=== PATIENT | female | born 1955 | race Caucasian/White ===

== ENCOUNTER 2016-10-02 20:18 | Emergency (ER) | payer OTHER ==
[~2016-10-02 20:18] MED LIST: ACCUPRIL PO; ALBUTEROL0.83 MG/ML INH; ALBUTEROL17 GM INH; ALBUTEROL2.5 MG/0.5 INH; ALBUTEROL20 ml INH; ASPIRIN PO; ASPIRIN81 M2 PO; ATIVAN INJ; ATIVAN0.5 MG PO; AUGMENTIN PO; BACTRIM DS TABL1 TA1 PO; BACTRIM DS TABL1 TA2 PO; BACTRIM DS TABL1 TAB PO; BP PILL; BUPROPION HCL150 M3 PO; CHEWABLE ASPIRI81 MG PO; CHOLESTEROL MED PO; CIPRO PO; CLEOCIN PO; COMBIVENT U/D3 M2 INH; DARVOCET-N 1001 TAB PO; DIAZEPAM PO; DICLOFENAC PO; FLAGYL PO; FLEXERIL PO; FLEXERIL10 MG PO; GABAPENTIN400 M2 PO; GABAPENTIN600 MG PO; GLUCOTROL; GLUCOTROL PO; GUAIFENESIN200 M1 PO; HALDOL PO; HUMALOG100 U/M2 SUBQ; HUMIBID-LA600 MG PO; HYDROCODON-ACE1 EAC5 PO; IBUPROFEN PO; IPRAT-ALBUT 0.5-3 ML IH; JANUMET 50-1,1 UDTAB; JANUMET 50-1,1 UDTAB PO; JANUMET XR 1001 EACH PO; JANUVIA PO; KEFLEX500 MG PO; LANTUS INSULIN SQ; LANTUS100 U/M1 SQ; LANTUS100 U/M1 SUBQ; LANTUS100 U/ML INJ; LANTUS100 U/ML SUBQ; LEVAQUIN750 M1 PO; LEVAQUIN750 MG PO; LEVEMIR100 UNITS/ SUBQ; LIPITOR20 MG PO; LISINOPRIL PO; LISINOPRIL20 MG PO; LORAZEPAM1 MG PO; LORTAB 10-3251 EACH PO; LORTAB 5/500 TA1 TA1 PO; LORTAB 7.51 TAB DOB; MACROBID100 M1 PO; MEDROL DOSEPAK4 MG PO; MEDROL4 MG/DOSE- PO; METFORMIN; METFORMIN HCL1000 M1 PO; METFORMIN HCL500 M2 PO; METFORMIN HCL850 MG PO; METFORMIN PO; MOBIC PO; NAPROSYN375 MG PO; NAPROSYN500 MG PO; NAPROXEN PO; NEURONTIN PO; NEURONTIN100 MG PO; NEURONTIN300 MG PO; NEURONTIN600 MG PO; NEURONTIN800 MG PO; NORCO1 TAB 10/3 PO; NOVOLOG100 U/ML; NOVOLOG100 U/ML SUBQ; ORUDIS75 M1 PO; PAROXETINE HCL40 M1 PO; PAXIL; PAXIL PO; PAXIL40 MG PO; PEN-VEE K PO; PERCOCET PO; PRAVACHOL20 MG PO; PREDNISONE PO; PREDNISONE10 MG PO; PREDNISONE10 MG/DOSE PO; PREDNISONE5 M1 PO; PULMICORT0.5 MG/2 M IH; PYRIDIUM PO; PYRIDIUM100 MG PO; REQUIP0.5 MG PO; ROBAXIN500 MG PO; SYMBICORT INH; TALWIN NX50 MG TAB PO; TYLENOL #3 PO; ULTRAM PO; VIBRAMYCIN100 M1 PO; VICODIN 5/1 TAB 5/50 PO; VICODIN 5/500 T1 TAB PO; VICODIN PO; VOLTAREN75 MG PO; WELLBUTRIN PO; XANAX1 MG PO; ZITHROMAX PO; ZOFRAN ODT4 MG SL; ZOVIRAX400 MG PO
== END 2016-10-02 20:40 | disposition home or self-care (01) ==
LOC: SED 20:18
DX: L02.211 Cutaneous abscess of abdominal wall (principal); E11.9 Type 2 diabetes mellitus without complications; F17.210 Nicotine dependence, cigarettes, uncomplicated; Z88.0 Allergy status to penicillin; Z79.899 Other long term (current) drug therapy
CPT/HCPCS: 10060; 82947; 99283

== ENCOUNTER 2016-10-15 19:14 | Emergency (ER) | payer OTHER ==
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
== END 2016-10-15 20:51 | disposition home or self-care (01) ==
LOC: SED 19:14
DX: S50.12XA Contusion of left forearm, initial encounter (principal); E11.9 Type 2 diabetes mellitus without complications; J44.9 Chronic obstructive pulmonary disease, unspecified; F17.210 Nicotine dependence, cigarettes, uncomplicated; Z88.0 Allergy status to penicillin; Z79.899 Other long term (current) drug therapy; Z79.4 Long term (current) use of insulin; W18.30XA Fall on same level, unspecified, initial encounter; Y92.89 Other specified places as the place of occurrence of the external cause
CPT/HCPCS: 10060; 73090; 82947; 99283

== ENCOUNTER 2016-10-18 16:49 | Emergency (ER) | payer OTHER | END 2016-10-18 16:54 | disposition home or self-care (01) | LOC: SED 16:49 | DX: L03.114 Cellulitis of left upper limb (principal); J44.9 Chronic obstructive pulmonary disease, unspecified; F41.0 Panic disorder [episodic paroxysmal anxiety]; E11.9 Type 2 diabetes mellitus without complications; F17.210 Nicotine dependence, cigarettes, uncomplicated; Z79.4 Long term (current) use of insulin; Z79.899 Other long term (current) drug therapy; Z88.0 Allergy status to penicillin; Z88.8 Allergy status to other drugs, medicaments and biological substances | CPT/HCPCS: 99282 ==

== ENCOUNTER 2016-10-20 15:22 | Emergency (ER) | payer OTHER ==
[2016-10-20 15:49] LABS: BASOPHIL# 0.1 X10e3 (0-0.3); BASOPHIL% 0.7 % (0-2.5); EOSINOPHIL# 0.1 X10e3 (0-0.7); EOSINOPHIL% 0.7 % (0.0-7.0); HEMATOCRIT 38.2 % (35.0-45.0); HEMOGLOBIN 12.9 gm/dL (12.0-16.0); LYMPHOCYTE# 1.1 X10e3 (1.0-3.5); LYMPHOCYTE% 10.3 % (17.0-45.0); MEAN CELL VOLUME 80.2 FL (83-96); MEAN CORPUSCULAR HEMOGLOBIN 27.1 PG (28-34); MEAN CORPUSCULAR HGB CONC 33.8 g/dL (30-36); MEAN PLATELET VOLUME 8.2 FL (6.5-11.5); MONOCYTE% 9.5 % (3.0-12.0); NEUTROPHIL# 8.1 X10e3 (1.5-7.1); NEUTROPHIL% 78.8 % (40-75); PLATELET COUNT 420 X10e3 (140-420); RED BLOOD COUNT 4.76 X10e (3.90-5.30); RED CELL DISTRIBUTION WIDTH 14.3 % (11.0-15.5); WHITE BLOOD COUNT 10.3 X10e3 (4.0-10.5)
[2016-10-20 15:50] LABS: DIFF IND NO
[2016-10-20 16:18] LABS: ALBUMIN SERUM 3.7 g/dL (3.5-5.0); BILIRUBIN, DIRECT 0.1 mg/dL (0.0-0.2); BILIRUBIN,TOTAL 1.1 mg/dL (0.2-2.0); CALCIUM SERUM 9.3 mg/dL (8.4-10.2); CREATININE SERUM 0.8 mg/dL (0.6-1.4); GLOM FILT RATE Estimated 79.1 mL/min (>60); POTASSIUM 4.5 mmol/L (3.5-5.1); PROTEIN TOTAL SERUM 7.8 g/dL (6.0-8.3)
[2016-10-21] MEDS ORDERED: COMBIVENT U/D3 M1 INH (15:05)
[2016-10-21] MEDS ORDERED: CLINDAMYCIN HC300 MG PO (15:06)
[2016-10-21] MEDS ORDERED: METFORMIN PO (15:07)
[2016-10-21] MEDS ORDERED: NEURONTIN PO (15:07)
[2016-10-21] MEDS ORDERED: PAXIL30 MG PO (15:08)
[2016-10-21] MEDS ORDERED: LANTUS100 UNITS/ SUBQ (15:08)
== END 2016-10-20 19:07 | disposition home or self-care (01) ==
LOC: SED 15:22
PROVIDERS: Emergency Medicine
DX: L03.114 Cellulitis of left upper limb (principal); E11.9 Type 2 diabetes mellitus without complications; J44.9 Chronic obstructive pulmonary disease, unspecified; Z90.710 Acquired absence of both cervix and uterus; Z98.890 Other specified postprocedural states; Z88.8 Allergy status to other drugs, medicaments and biological substances; Z79.4 Long term (current) use of insulin
CPT/HCPCS: 36415; 80048; 80076; 85025; 87040; 96361; 96365; 96375; 99284; J0295; J1170; J2270; J2405; J3370

== ENCOUNTER 2016-10-21 13:59 | Inpatient (IN) | payer OTHER ==
--- NOTE | ~2016-10-21 | EKG ---
PATIENT: KRAIG HANEY UNIT #: [id number] Ventricular Rate: 99 BPM Atrial Rate: 99 BPM P-R Interval: 136 ms QRS Duration: 80 ms Q-T Interval: 350 ms QTC Calculation(Bezet): 449 ms P Haswell: 17 degrees Calculated R Haswell: 30 degrees Calculated T Haswell: 30 degrees Diagnosis Line: Sinus rhythm with Premature atrial complexes Diagnosis Line: Otherwise normal ECG Diagnosis Line: When compared with ECG of 11-MAY-2016 01:39, Diagnosis Line: No significant change was found Diagnosis Line: Confirmed by NATTY JAIN MD ([id number]) on 10/21/2016 Diagnosis Line: 10:29:21 PM INTERPRETING MD: CRISTOBAL GUERRERO
--- NOTE | ~2016-10-21 | OR ---
Unit #: [id number] #: [id number] Patient: KRAIG HANEY [id number] [address] [place], [place] [address] [id number] I MR#: [id number] NAME: KRAIG HANEY ROOM: 220 Date of Procedure: 10/22/2016 Admission Date: 10/21/2016 Surgeon: Chance Hill M.D. : 1955 Attending Physician: Linda Woodruff M.D. Primary Care Physician: Primary Care Physician No OPERATIVE REPORT PREOPERATIVE DIAGNOSIS Abscess secondary to IV drug abuse, left upper extremity. POSTOPERATIVE DIAGNOSIS Abscess secondary to IV drug abuse, left upper extremity. PROCEDURE PERFORMED Incision and drainage of left elbow abscess. ANESTHESIA General endotracheal anesthesia. ESTIMATED BLOOD LOSS 20 mL. INDICATIONS FOR PROCEDURE A 61-year-old female, who presents to the hospital with an enlarging and painful abscess that has partially spontaneously drained from the left upper extremity. We plan on doing an adequate incision drainage and debridement as appropriate. DESCRIPTION OF PROCEDURE The patient was transported from her hospital room to the operating room, and after induction of general endotracheal anesthesia, she was prepped and draped in usual sterile fashion. Through the small opening in the central portion of the fluctuant mass, we explored the wound and identified the extent of the underlying abscess cavity. A 15-blade was then used to open the abscess cavity fully. The abscess cavity was digitalized, drained, irrigated, and packed with Betadine soaked Kerlix. 2-0 Vicryl stay sutures used to hold the packing in place. The arm was clean. Dry sterile dressing and Kerlix were placed. Sponges and needle counts were correct x3. The patient tolerated the procedure well and transported to recovery in stable condition. There was no family available at the end of the case. Dictated by... Chance Hill M.D. JENNIFER/juan carlos TD: 10/22/2016 22:43 Unit #: [id number] #: [id number] Patient: KRAIG HANEY JOB #: [id number] OPERATIVE REPORT Page 1 of 1 X Chance Hill MD PROCEDURE OPERATIVE NOTE
--- NOTE | ~2016-10-21 | CR72 ---
[facility] A Service of [facility] & [facility] RADIOLOGY TEXT RESULTS PATIENT: KRAIG HANEY LOCATION: [facility] [facility] : 53 UNIT #: [id number] AGE: [address]: Kimberlee Arteaga MD SEX: F ORDER DR: [id number] [facility] [address] [place], [place] [address] [id number] E MR#: [id number] Acc #: [id number] NAME: KRAIG HANEY : 1955 SEX: F STUDY DATE/TIME: 10/21/2016 12:37 UNIT: [facility] ROOM: STUDY DESCRIPTION: CR Chest Single View Portable Attending Physician: Kimberlee Arteaga M.D. Ordering Physician: Kimberlee Arteaga M.D. Primary Care Physician: Primary Care Physician No MEDICAL IMAGING REPORT This report is preliminary unless electronic signature is present EXAM Chest portable 10/21/2016 1237 hours HISTORY 61-year-old woman complaining of shortness of air today. History of diabetes, hypertension, tracheostomy tube placed 3 years ago. COMPARISON 08/07/2016 FINDINGS Portable upright chest demonstrates stable tracheostomy appliance. The cardiac, mediastinal and hilar contours are normal. The lungs are well inflated with underlying calcified granulomatous changes unchanged. There is no acute pulmonary density or pleural effusion. IMPRESSION Stable tracheostomy appliance. Lungs are clear of acute densities. No significant change from 08/07/2016. Dictated by... Anabelle Bailey M.D. THIS IS AN ELECTRONICALLY VERIFIED REPORT Anabelle Bailey M.D. at 10/21/2016 2:28 PM Matt TD: 10/21/2016 14:03 JOB #: [id number] MEDICAL IMAGING REPORT Page 1 of 1 COPY
--- NOTE | ~2016-10-21 | HP ---
Unit #: [id number] #: [id number] Patient: KRAIG HANEY [id number] [address] [place], [place] [address] [id number] I MR#: [id number] NAME: KRAIG HANEY ROOM: 58900 Age: 61 Sex: F Admission Date: 10/21/2016 : 1955 Attending Physician: Jessica Dukes M.D. HISTORY AND PHYSICAL CHIEF COMPLAINT Short of air. HISTORY OF PRESENT ILLNESS The patient is a 61-year-old female with a past medical history of diabetes, MRSA, COPD, hyperlipidemia, anxiety, depression, and IV drug use, who presented to the emergency department for evaluation of the above. The patient states that she has had a four to five day history of pain in the left upper extremity. She was seen in the emergency department on October 18, 2016, as well as October 20, 2016, for abscess. She underwent incision and drainage and was discharged home on clindamycin which she has been taking as prescribed. She states that the wound is currently draining pus. She denies any fever. She states that she has had some shortness of breath in association with pain. She denies any chest pain. Appetite has been good. She denies any vomiting or diarrhea. In the emergency department, initial pulse and blood pressure were 92 and 117/68, respectively, and temperature was 98.8. White blood cell count 10.2. She did have a left forearm x-ray on October 15, 2016, that showed soft tissue swelling around the proximal forearm at the level of the proximal ulna. In the emergency department, she was given vancomycin and morphine. She is being admitted to [facility] for evaluation and further treatment. PAST MEDICAL HISTORY 1. Admission to [facility] August 03, 2016, for sepsis secondary to right breast and bilateral calf abscesses. Wound culture from the right calf (August 04, 2016) grew 2+ alpha strep. There was a nares swab from June 11, 2010, that grew MRSA. Cultures from the breast abscess showed no growth. Blood cultures from August 03, 2016, showed no growth after five days. She was discharged home on Bactrim. 2. Diabetes with peripheral neuropathy. The patient's hemoglobin A1c was 12 on August 04, 2016. 3. Chronic obstructive pulmonary disease, status post tracheostomy, with continued tobacco abuse. 4. Hyperlipidemia. 5. Anxiety and depression. PAST SURGICAL HISTORY 1. Cardiac catheterization on March 22, 2015, at [facility], showed angiographically normal coronaries with an ejection fraction of 55% to 60% (per Cardiology consultation note dated April 13, Unit #: [id number] #: [id number] Patient: KRAIG HANEY 2015). 2. Incision and drainage of breast abscess. 3. Incision and drainage of calf abscess. 4. Tracheostomy. 5. Hysterectomy. 6. Tonsillectomy. 7. Right hand surgery. SOCIAL HISTORY The patient lives with a roommate. She continues to smoke. She states that she smokes about once a week but smoked as much as two packs daily for about 35 years. She does report IV drug use, most recently methamphetamine, but states that it has been about a month ago. She denies alcohol use. FAMILY HISTORY Notable for there being no coronary artery disease. ALLERGIES Muscle relaxers. HOME MEDICATIONS 1. Combivent 4 times daily. 2. Clindamycin 300 mg 4 times daily. 3. Neurontin 600 mg 4 times daily. 4. Metformin 1000 mg twice daily. REVIEW OF SYSTEMS A complete review of systems is negative except as indicated in the History of Present Illness. The patient states that her blood sugars are typically in the 200s. PHYSICAL EXAMINATION VITAL SIGNS: Temperature is 98.8, pulse 92, respirations 34, blood pressure 117/68, and oxygen saturation is 100%. GENERAL: Patient is a female who is awake, alert, and in no acute distress. HEENT: Head is atraumatic. Mucous membranes are moist. NECK: Patient has a tracheostomy. CARDIOVASCULAR: Regular rate and rhythm. LUNGS: Relatively clear to auscultation bilaterally. ABDOMEN: Soft and nontender with bowel sounds present in all four quadrants. EXTREMITIES: Left upper extremity in the region of the forearm demonstrates an area of erythema, warmth, and tenderness to palpation. She does have a 2+ radial pulse. No pedal edema. NEUROLOGIC: Patient is awake and alert. She follows commands. PSYCHIATRIC: Mood and affect are normal. Patient is cooperative. SKIN: Previously described abnormalities. ASSESSMENT The patient is a 61-year-old female with: 1. Left upper extremity abscess/cellulitis. The patient received vancomycin in the emergency department. 2. Possible sepsis. 3. Uncontrolled diabetes. The patient's hemoglobin A1c was 12 in July 2016. 4. History of MRSA per swab of nares. Unit #: [id number] #: [id number] Patient: KRAIG HANEY 5. Chronic obstructive pulmonary disease with continued tobacco abuse, status post tracheostomy. 6. Hyperlipidemia. 7. Anxiety and depression. 8. History of IV drug use. 9. Tobacco abuse. PLAN 1. Admit to med/surg. 2. Healthy heart, consistent carbohydrate diet. 3. N.p.o. after midnight for possible surgical intervention. 4. Blood cultures x2. 5. Wound culture and sensitivity. 6. Vancomycin IV and Zosyn IV pending further workup. 7. Consult [facility] regarding left upper extremity abscess. 8. Low-dose sliding scale insulin with Accu-Cheks. 9. P.r.n. DuoNebs. 10. Check EKG and cardiac enzymes. 11. Check urinalysis. 12. Urine toxicology screen. 13. Hepatitis panel and HIV. 14. Operating Room Orderly/Social Work consult regarding IV drug use. 15. P.r.n. Tylenol. 16. P.r.n. Toradol. 17. Repeat labs in the morning. 18. Additional workup and consultants based on above. 1. Dictated by Jessica Dukes M.D. AW/jose TD: 10/21/2016 15:50 JOB #: [id number] HISTORY AND PHYSICAL Page 1 of 1 X Jessica Dukes MD X HISTORY AND PHYSICAL
--- NOTE | ~2016-10-21 | CO ---
Unit #: [id number] #: [id number] Patient: KRAIG HANEY [id number] [address] [place], [place] [address] [id number] I MR#: [id number] NAME: KRAIG HANEY ROOM: 220 Age: 61 Sex: F Admission Date: 10/21/2016 : 1955 Attending Physician: Linda Woodruff M.D. Primary Care Physician: No Primary Care Physician Consultation Date: 10/22/2016 CONSULTATION REPORT HISTORY OF PRESENT ILLNESS Ms. Haney is a 61-year-old white female, long-term IV drug abuser. She has an indwelling tracheostomy, being on the ventilator in the past for her drug abuse sedation and narcotic abuse. She has a partially drained abscess over her left arm, and we were able to squeeze pus out of this. It needs to be opened and drained and cleaned out. At first the patient refused surgery, but now she agrees. ALLERGIES The patient has no allergies. MEDICATIONS She is on multiple medications at home, to include Combivent, Neurontin, Glucophage, Lantus. She is also on Paxil. PAST MEDICAL HISTORY She has poorly controlled diabetes. PHYSICAL EXAMINATION GENERAL: This a cooperative, alert white female, who has a tracheostomy in place, but she can speak. ENT: Clear otherwise. CHEST: Scattered rales and rhonchi. CARDIAC: The rhythm is regular. No murmurs. ABDOMEN: Soft, nontender. SKIN: The area in question is over the left arm, partially drained abscess is noted on the posterior aspect of the arm. I squeezed. There was a lot of purulent material that came out. There is secondary induration and cellulitis. PLAN At this time we will proceed with opening this up. The risks have been explained to the patient. She understands. Dictated by... Uday Rodriguez M.D. JAIRON/lui TD: 10/22/2016 14:51 JOB #: [id number] Unit #: [id number] #: [id number] Patient: KRAIG HANEY CONSULTATION REPORT Page 1 of 1 X Uday Rodriguez MD CONSULTATION REPORT
--- NOTE | ~2016-10-21 | DS ---
Unit #: [id number] #: [id number] Patient: KRAIG HANEY [id number] [address] [address] [id number] I MR#: [id number] NAME: KRAIG HANEY ROOM: 220 Age: 61 Sex: F Admission Date: 10/21/2016 : 1955 Discharge Date: Attending Physician: Linda Woodruff M.D. Primary Care Physician: No Primary Care Physician DISCHARGE SUMMARY DISCHARGE DIAGNOSES 1. Sepsis. 2. Left elbow abscess and cellulitis. 3. Diabetes mellitus type 2, uncontrolled. 4. History of methicillin resistant Staphylococcus aureus. 5. Chronic obstructive pulmonary disease, chronic with status post tracheostomy. 6. Smoking. 7. Hyperlipidemia. 8. Anxiety. 9. Depression. 10. History of IV drug abuse. 11. History of right breast abscess, status post incision and drainage. 12. Bilateral calf abscesses, status post incision and drainage. 13. Obesity. 14. Mild hyponatremia. CONSULTATION [facility]. PROCEDURES Patient had incision and drainage of left elbow abscess. DIAGNOSTIC STUDIES LABORATORY: Glucose 179. Wound cultures are growing Streptococcus milleri. Urine cultures are negative. Blood cultures negative. WBC is 5.5, hemoglobin 10.6, and platelets 393. ALLERGIES Carisoprodol, baclofen, and cyclobenzaprine. DISCHARGE MEDICATIONS 1. DuoNeb 3 mL 4 times daily. 2. Neurontin 600 4 times daily. 3. Paxil 30 daily. 4. Metformin 1000 p.o. b.i.d. 5. Lantus 40 units subcu. at bedtime. 6. Dakin's solution apply locally q.8 hours. 7. Bactrim DS tablet 1 tablet p.o. b.i.d. for 7 days. 8. Percocet 10 mg q.4 p.r.n. pain. HOSPITALIZATION COURSE This is a 61-year-old admitted because of left forearm swelling and shortness of breath. Unit #: [id number] #: [id number] Patient: KRAIG HANEY LEFT ELBOW ABSCESS: Patient is seen by [facility]. Patient had I and D. Currently, swelling better and erythema better. She will continue local wound care as per surgeon's recommendations and continue using Dakin's solution. I am going to arrange home health if needed. Patient received vancomycin and Zosyn. Cultures are growing Streptococcus milleri. Patient has history of MRSA. Patient will be discharged on Bactrim for seven more days. Continue Percocet for pain. Prescriptions given. IV DRUG ABUSE: Advised to quit. Blood cultures negative. SEPSIS: Secondary to left arm abscess, resolved. CHRONIC RESPIRATORY FAILURE: Status post tracheostomy. Monitor and follow with PCP. DIABETES MELLITUS TYPE 2: Continue with insulin. She is out of metformin. I am going to give prescription. HYPERTENSION: Lower side secondary to pain medications. Currently stable. DISPOSITION Discharged home with home health. FOLLOWUP 1. Follow up with family physician in one week's time. 2. Follow up with Dr. Hill in 7-10 days' time. Dictated by... Stephani Ko/ba TD: 10/24/2016 10:14 JOB #: [id number] DISCHARGE SUMMARY Page 1 of 1 X Linda Woodruff MD X DISCHARGE SUMMARY
[2016-10-21 13:34] LABS: BASOPHIL# 0.1 X10e3 (0-0.3); BASOPHIL% 0.8 % (0-2.5); EOSINOPHIL% 0.5 % (0.0-7.0); HEMATOCRIT 39.4 % (35.0-45.0); HEMOGLOBIN 13.3 gm/dL (12.0-16.0); LYMPHOCYTE% 10.2 % (17.0-45.0); MEAN CORPUSCULAR HEMOGLOBIN 26.9 PG (28-34); MEAN CORPUSCULAR HGB CONC 33.6 g/dL (30-36); MEAN PLATELET VOLUME 8.4 FL (6.5-11.5); MONOCYTE# 0.8 X10e3 (0-1.0); MONOCYTE% 7.7 % (3.0-12.0); NEUTROPHIL# 8.2 X10e3 (1.5-7.1); NEUTROPHIL% 80.8 % (40-75); PLATELET COUNT 399 X10e3 (140-420); RED BLOOD COUNT 4.92 X10e (3.90-5.30); RED CELL DISTRIBUTION WIDTH 14.4 % (11.0-15.5); WHITE BLOOD COUNT 10.2 X10e3 (4.0-10.5)
[2016-10-21 13:36] LABS: DIFF IND NO
[2016-10-21 14:00] LABS: ALBUMIN SERUM 3.5 g/dL (3.5-5.0); BILIRUBIN, DIRECT 0.2 mg/dL (0.0-0.2); BILIRUBIN,INDIRECT 1.4 mg/dL (0.0-0.9); BILIRUBIN,TOTAL 1.6 mg/dL (0.2-2.0); BUN/CREATININE RATIO 13.75; CALCIUM SERUM 9.2 mg/dL (8.4-10.2); CREATININE SERUM 0.8 mg/dL (0.6-1.4); GLOM FILT RATE Estimated 79.1 mL/min (>60); POTASSIUM 4.6 mmol/L (3.5-5.1); PROTEIN TOTAL SERUM 7.6 g/dL (6.0-8.3)
[2016-10-21 14:03] LABS: PROTHROMBIN TIME (PATIENT) 10.3 SECONDS (9.6-11.5)
[2016-10-21 14:39] LABS: POC - CKMB 2.4 ng/mL (0.0-7.9); POC - TROPONIN <0.05 ng/mL (<=0.05)
[2016-10-21] MEDS ORDERED: COMBIVENT U/D3 M1 INH (15:05)
[2016-10-21] MEDS ORDERED: CLINDAMYCIN HC300 MG PO (15:06)
[2016-10-21] MEDS ORDERED: METFORMIN PO (15:07)
[2016-10-21] MEDS ORDERED: NEURONTIN PO (15:07)
[2016-10-21] MEDS ORDERED: PAXIL30 MG PO (15:08)
[2016-10-21] MEDS ORDERED: LANTUS100 UNITS/ SUBQ (15:08)
[2016-10-21 15:23] LABS: POC - CKMB 1.4 ng/mL (0.0-7.9); POC - TROPONIN <0.05 ng/mL (<=0.05)
[2016-10-21 16:18] LABS: URINE SOURCE CLEAN CATCH
[2016-10-21 16:25] LABS: URINE APPEARANCE CLEAR; URINE BILIRUBIN NEG (NEG); URINE BLOOD NEG (NEG); URINE COLOR YELLOW; URINE GLUCOSE >1000 MG/DL (NEG); URINE KETONE 3+ (NEG); URINE LEUKOCYTE ESTERASE NEG (NEG); URINE NITRATE NEG (NEG); URINE PROTEIN NEG (NEG); URINE SPECIFIC GRAVITY 1.034 (1.003-1.035)
[2016-10-21 16:28] LABS: CULTURE INDICATED? NO
[2016-10-21 16:40] LABS: AMPHETAMINE POS (NEG); BARBITURATES NEG (NEG); BENZODIAZEPINES NEG (NEG); COCAINE NEG (NEG); MARIJUANA NEG (NEG); OPIATES POS (NEG); TRICYCLIC ANTIDEPRESSANTS NEG (NEG); U METHADONE NEG (NEG)
[2016-10-21 21:56] LABS: %MB 3.2 % (0.0-4.0); MB 2.5 ng/ml
[2016-10-22 03:15] LABS: HEMATOCRIT 35.1 % (35.0-45.0); HEMOGLOBIN 11.4 gm/dL (12.0-16.0); MEAN CELL VOLUME 79.8 FL (83-96); MEAN CORPUSCULAR HEMOGLOBIN 25.9 PG (28-34); MEAN CORPUSCULAR HGB CONC 32.5 g/dL (30-36); MEAN PLATELET VOLUME 8.1 FL (6.5-11.5); RED BLOOD COUNT 4.39 X10e (3.90-5.30); WHITE BLOOD COUNT 5.5 X10e3 (4.0-10.5)
[2016-10-22 03:53] LABS: %MB 3.2 % (0.0-4.0); ALBUMIN SERUM 2.9 g/dL (3.5-5.0); BILIRUBIN,TOTAL 0.7 mg/dL (0.2-2.0); CREATININE SERUM 0.8 mg/dL (0.6-1.4); GLOM FILT RATE Estimated 79.1 mL/min (>60); MB 2.2 ng/ml; POTASSIUM 4.6 mmol/L (3.5-5.1); PROTEIN TOTAL SERUM 5.8 g/dL (6.0-8.3)
[2016-10-23 05:26] LABS: HEMATOCRIT 36.7 % (35.0-45.0); HEMOGLOBIN 11.9 gm/dL (12.0-16.0); MEAN CELL VOLUME 80.7 FL (83-96); MEAN CORPUSCULAR HEMOGLOBIN 26.1 PG (28-34); MEAN CORPUSCULAR HGB CONC 32.4 g/dL (30-36); MEAN PLATELET VOLUME 7.8 FL (6.5-11.5); RED BLOOD COUNT 4.54 X10e (3.90-5.30); WHITE BLOOD COUNT 6.5 X10e3 (4.0-10.5)
[2016-10-23 06:12] LABS: ALBUMIN SERUM 3.2 g/dL (3.5-5.0); BILIRUBIN,TOTAL 0.4 mg/dL (0.2-2.0); CALCIUM SERUM 8.8 mg/dL (8.4-10.2); CREATININE SERUM 0.7 mg/dL (0.6-1.4); GLOM FILT RATE Estimated 92.9 mL/min (>60); POTASSIUM 4.4 mmol/L (3.5-5.1); PROTEIN TOTAL SERUM 6.2 g/dL (6.0-8.3)
[2016-10-24 06:11] LABS: HEMATOCRIT 32.4 % (35.0-45.0); HEMOGLOBIN 10.6 gm/dL (12.0-16.0); MEAN CELL VOLUME 79.9 FL (83-96); MEAN CORPUSCULAR HEMOGLOBIN 26.2 PG (28-34); MEAN CORPUSCULAR HGB CONC 32.8 g/dL (30-36); MEAN PLATELET VOLUME 7.5 FL (6.5-11.5); RED BLOOD COUNT 4.06 X10e (3.90-5.30); RED CELL DISTRIBUTION WIDTH 14.1 % (11.0-15.5); WHITE BLOOD COUNT 5.5 X10e3 (4.0-10.5)
[2016-10-24] MEDS ORDERED: BACTRIM DS TAB1 EACH (10:12)
[2016-10-24] MEDS ORDERED: PERCOCET10 PO (10:13)
[2016-10-25 12:15] LABS: HA AB IGM (HEPPAN) Nonreactive (()); HB CORE AB IGM (HEPPAN) Nonreactive (Nonreactive); HB S AG (HEPPAN) Nonreactive (Nonreactive); HEP C AB (HEPPAN) Reactive (Nonreactive); HEP C AB SIGNAL TO CUTOFF 2.08 ratio (<1.00)
== END 2016-10-24 12:00 | disposition home health service (06) | DRG 872 ==
LOC: CED 13:59 → CEDOF 15:48 → C2A 17:29
PROVIDERS: Emergency Medicine; Family Medicine; Internal Medicine; Specialist; Surgery
PROC: 05H933Z Insertion of Infusion Device into Right Brachial Vein, Percutaneous Approach (ICD-10-PCS; 2016-10-22)
PROC: 0H9EXZZ Drainage of Left Lower Arm Skin, External Approach (ICD-10-PCS; principal; 2016-10-22 13:00)
DX: A41.9 Sepsis, unspecified organism (principal); E11.65 Type 2 diabetes mellitus with hyperglycemia; Z93.0 Tracheostomy status; E87.1 Hypo-osmolality and hyponatremia; L03.114 Cellulitis of left upper limb; L02.414 Cutaneous abscess of left upper limb; J44.9 Chronic obstructive pulmonary disease, unspecified; F17.210 Nicotine dependence, cigarettes, uncomplicated; B95.8 Unspecified staphylococcus as the cause of diseases classified elsewhere; F15.10 Other stimulant abuse, uncomplicated; E78.5 Hyperlipidemia, unspecified; F41.9 Anxiety disorder, unspecified; F32.9 Major depressive disorder, single episode, unspecified; E66.9 Obesity, unspecified; Z68.28 Body mass index [BMI] 28.0-28.9, adult; Z86.14 Personal history of Methicillin resistant Staphylococcus aureus infection; Z79.899 Other long term (current) drug therapy; Z79.4 Long term (current) use of insulin; Z79.84 Long term (current) use of oral hypoglycemic drugs
CPT/HCPCS: 36415; 71010; 80048; 80053; 80074; 80076; 80202; 80307; 81003; 82550; 82553; 82947; 83605; 84484; 85025; 85027; 85610; 87040; 87070; 87086; 87205; 87806; 93005; 94760; 96365; 96366; 96375; 99285; J1170; J1815; J1885; J2270; J2405; J2543; J3010; J3370

== ENCOUNTER 2016-12-08 10:17 | Emergency (ER) | payer OTHER ==
--- NOTE | ~2016-12-08 | CR7 ---
[facility] A Service of [facility] RADIOLOGY TEXT RESULTS PATIENT: KRAIG HANEY LOCATION: SED : 54 UNIT #: [id number] AGE: [address]: Karthik Oneill MD SEX: F ORDER DR: [id number] [place] [id number] E MR#: [id number] Acc #: [id number] NAME: KRAIG HANEY : 1955 SEX: F STUDY DATE/TIME: 12/08/2016 11:49 UNIT: SED ROOM: STUDY DESCRIPTION: CR Abdomen Single AP View Attending Physician: Karthik Oneill M.D. Ordering Physician: Karthik Oneill M.D. Primary Care Physician: Primary Care Physician No MEDICAL IMAGING REPORT This report is preliminary unless electronic signature is present. EXAM Abdomen HISTORY Right-sided abdominal pain for 2 days. FINDINGS KUB is obtained. It is compared to a prior CT of 07/03/2016. Gas pattern in the abdomen is unremarkable. There is a radiodense calcification at the L5-S4 level on the right which on previous CT is clearly outside of the ureter. There are multiple calcified phleboliths in the pelvis. CONCLUSION 1. Unremarkable bowel gas pattern. 2. Calcifications in the pelvis as well as the L5-S1 level on the right. These are present on the patient's old CT and are outside of the course of the ureter. No evidence of renal or obstructing ureteral calculi on the radiographs. Dictated by... Sudheer Roa M.D. THIS IS AN ELECTRONICALLY VERIFIED REPORT Sudheer Roa M.D. at 12/12/2016 7:15 AM CINTIA/broderick TD: 12/08/2016 20:17 JOB #: [id number] MEDICAL IMAGING REPORT [facility] A Service of [facility] RADIOLOGY TEXT RESULTS PATIENT: KRAIG HANEY LOCATION: SED : 54 UNIT #: [id number] AGE: [address]: Karthik Oneill MD SEX: F ORDER DR: Page 1 of 1
[~2016-12-08 10:17] MED LIST changes: +BACTRIM DS TAB1 EACH; +CLINDAMYCIN HC300 MG PO; +COMBIVENT U/D3 M1 INH; +LANTUS100 UNITS/ SUBQ; +PAXIL30 MG PO; +PERCOCET10 PO
[2016-12-08 10:50] LABS: URINE SOURCE CLEAN CATCH
[2016-12-08 10:54] LABS: URINE APPEARANCE CLEAR; URINE BILIRUBIN NEG (NEG); URINE BLOOD NEG (NEG); URINE COLOR YELLOW; URINE GLUCOSE 300 MG/DL (NORM); URINE KETONE NEG (NEG); URINE LEUKOCYTE ESTERASE NEG (NEG); URINE NITRATE NEG (NEG); URINE PROTEIN NEG (NEG); URINE UROBILINOGEN 0.2 MG/DL (NORM)
[2016-12-08 10:58] LABS: MICRO INDICATED? NO
== END 2016-12-08 12:33 | disposition home or self-care (01) ==
LOC: SED 10:17
PROVIDERS: Emergency Medicine
DX: R10.9 Unspecified abdominal pain (principal); F17.210 Nicotine dependence, cigarettes, uncomplicated
CPT/HCPCS: 74000; 81003; 99284

== ENCOUNTER 2017-01-25 12:33 | Emergency (ER) | payer OTHER ==
--- NOTE | ~2017-01-25 | CR219 ---
[facility] A Service of [facility] & [facility] RADIOLOGY TEXT RESULTS PATIENT: KRAIG HANEY LOCATION: SED : 54 UNIT #: [id number] AGE: [address]: FRANCES BRAGA SEX: F ORDER DR: [id number] [place] [id number] E MR#: [id number] Acc #: [id number] NAME: KRAIG HANEY : 1955 SEX: F STUDY DATE/TIME: 01/25/2017 12:56 UNIT: SED ROOM: STUDY DESCRIPTION: CR Sacrum and Coccyx Min 2 Vie Attending Physician: Frances Braga A.P.R.N. Ordering Physician: Frances Braga A.P.R.N. Primary Care Physician: No Primary Care Physician MEDICAL IMAGING REPORT This report is preliminary unless electronic signature is present. EXAM Sacrum and coccyx 01/25/2017 HISTORY Fall 3 days ago with tailbone pain. COMPARISON None FINDINGS AP and lateral views of the sacrum and coccyx were obtained. No fracture is visible. The bones appear normal. IMPRESSION Normal sacrum and coccyx. Dictated by... Juan Francisco Ontiveros M.D. THIS IS AN ELECTRONICALLY VERIFIED REPORT Juan Francisco Ontiveros M.D. at 01/26/2017 9:36 PM NEIL/daniel TD: 01/26/2017 04:43 JOB #: [id number] MEDICAL IMAGING REPORT Page 1 of 1
== END 2017-01-25 13:40 | disposition home or self-care (01) ==
LOC: SED 12:33
DX: S30.0XXA Contusion of lower back and pelvis, initial encounter (principal); J44.9 Chronic obstructive pulmonary disease, unspecified; E11.9 Type 2 diabetes mellitus without complications; F17.200 Nicotine dependence, unspecified, uncomplicated; W01.0XXA Fall on same level from slipping, tripping and stumbling without subsequent striking against object, initial encounter; Y92.009 Unspecified place in unspecified non-institutional (private) residence as the place of occurrence of the external cause
CPT/HCPCS: 72220; 99283; J1885

== ENCOUNTER 2017-01-31 13:28 | Emergency (ER) | payer OTHER ==
[~2017-01-31] VITALS: Ht 162.6 cm; Wt 73.5 kg
== END 2017-01-31 15:00 | disposition home or self-care (01) ==
LOC: SED 13:28
DX: T65.91XA Toxic effect of unspecified substance, accidental (unintentional), initial encounter (principal); L08.9 Local infection of the skin and subcutaneous tissue, unspecified; E11.9 Type 2 diabetes mellitus without complications; J44.9 Chronic obstructive pulmonary disease, unspecified; F31.9 Bipolar disorder, unspecified; F41.9 Anxiety disorder, unspecified; F17.210 Nicotine dependence, cigarettes, uncomplicated; Z93.0 Tracheostomy status
CPT/HCPCS: 99282